=== PATIENT | male | born 1930 | race Caucasian/White ===

== ENCOUNTER 2016-09-12 14:56 | Inpatient (IN) | payer OTHER, BC ==
--- NOTE | 2016-09-12 15:45 | PDOC ---
History of Present Illness <Mack Reddy - Last Filed: 09/12/16 18:56> - General History Source: Patient Exam Limitations: No Limitations - History of Present Illness Initial Comments: 09/12/16 16:20 The patient is a 85 year old male with significant past medical history of bladder CA, hypertension, hyperlipidemia, diverticulosis who presents to the emergency department with a 3 day history of rectal bleeding. The patient states when he first noticed blood per rectum it was light in color and mixed with stool. In the later days of his stool the blood turned darker red and became coagulated. The patient is also complaining of some LLQ abdominal pain. His pain is worse with standing up and ambulation. His pain is better after a BM. His pain is a 5/10 in severity. He reports some associated weakness but denies any nausea, vomiting, or diarrhea. The patietn states his last colonoscopy was [address] Hill and he was told to come back for another in 5 years. The patient denies any recent abx use. He denies recent travels or sick contacts. The patient denies recent illness, fevers, or chills. <Chely Estrella - Last Filed: 09/12/16 23:03> - General Chief Complaint: Rectal Bleed Stated Complaint: RECTAL BLEEDING Time Seen by Provider: 09/12/16 15:44 Past History - Past Medical History Anemia: Yes (H/O BLOOD TRANSFUSIONS) Asthma: No Cancer: Yes (H/O BLADDER; PROSTATE: 2013) Cardiac Disorders: No CVA: No COPD: No CHF: No Dementia: No Diabetes: No GI Disorders: Yes (HEMORRHOIDS, diverticulosis, retal bleeding with blood transfusion) Disorders: Yes (BLADDER TUMOR) HTN: Yes Hypercholesterolemia: Yes Liver Disease: No Seizures: No Thyroid Disease: No - Surgical History Abdominal Surgery: Yes (BLADDER CA: 2011) Appendectomy: No Cardiac Surgery: No Cholecystectomy: No Lung Surgery: No Neurologic Surgery: No Orthopedic Surgery: Yes (R KNEE REPLACEMENT) - Immunization History Immunization Up to Date: Yes - Psycho/Social/Smoking Cessation Hx Anxiety: No Suicidal Ideation: No Smoking Status: No Smoking History: Never smoked Have you smoked in the past 12 months: No Number of Cigarettes Smoked Daily: 0 Information on smoking cessation initiated: No Hx Alcohol Use: Yes Drug/Substance Use Hx: No Substance Use Type: None Hx Substance Use Treatment: No <Mack Reddy - Last Filed: 09/12/16 18:56> <Chely Estrella - Last Filed: 09/12/16 23:03> - Past Medical History Allergies/Adverse Reactions: Allergies Allergy/AdvReac Type Severity Reaction Status Date / Time lorazepam [From Ativan] AdvReac Mild CONFUSION Verified 09/12/16 15:09 Home Medications: Ambulatory Orders Atorvastatin Calcium [Lipitor] 10 mg PO HS 09/12/16 Cholecalciferol (Vitamin D3) [Vitamin D3 -] 400 unit PO DAILY 09/12/16 Diltiazem HCl [Cartia Xt] 300 mg PO DAILY 09/12/16 Folic Acid/Multivit-Min/Lutein [Centrum Silver Chewable Tablet] 1 each PO DAILY 09/12/16 Gluc HCl/Csa/Collagen/Hyalur A [Glucosamine Chondroitin Cap] 1 each PO DAILY Olmesartan/Hydrochlorothiazide [Benicar Hct 40-12.5MG Tab] 1 tab PO DAILY Tamsulosin HCl [Flomax] 0.4 mg PO DAILY 09/12/16 Review of Systems - Review of Systems Able to Perform ROS?: Yes Comments:: 09/12/16 16:20 GENERAL/CONSTITUTIONAL: No fever or chills. No weakness. HEAD, EYES, EARS, NOSE AND THROAT: No change in vision. No ear pain or discharge. No sore throat. CARDIOVASCULAR: No chest pain or shortness of breath. RESPIRATORY: No cough, wheezing, or hemoptysis. GASTROINTESTINAL: +LLQ pain. +Blood per rectum. No nausea, vomiting, diarrhea or constipation. GENITOURINARY: No dysuria, frequency, or change in urination. MUSCULOSKELETAL: No joint or muscle swelling or pain. No neck or back pain. SKIN: No rash NEUROLOGIC: No headache, vertigo, loss of consciousness, or change in strength/ sensation. ENDOCRINE: No increased thirst. No abnormal weight change. HEMATOLOGIC/LYMPHATIC: No anemia, easy bleeding, or history of blood clots. ALLERGIC/IMMUNOLOGIC: No hives or skin allergy. <Chely Estrella - Last Filed: 09/12/16 23:03> *Physical Exam - Vital Signs Last Vital Signs Temp Pulse Resp BP Pulse Ox 97.7 F 104 H 20 103/53 97 09/12/16 15:09 09/12/16 15:09 09/12/16 15:09 09/12/16 15:09 09/12/16 15:09 <Mack Reddy - Last Filed: 09/12/16 18:56> - Vital Signs Last Vital Signs Temp Pulse Resp BP Pulse Ox 97.7 F 104 H 20 103/53 97 09/12/16 15:09 09/12/16 15:09 09/12/16 15:09 09/12/16 15:09 09/12/16 15:09 - Physical Exam Comments: 09/12/16 16:21 GENERAL: Awake, alert, and fully oriented, in no acute distress. +Pale appearing. HEAD: No signs of trauma EYES: PERRLA, EOMI, sclera anicteric, conjunctiva clear ENT: Auricles normal inspection, hearing grossly normal, nares patent, oropharynx clear without exudates. Moist mucosa NECK: Normal ROM, supple, no lymphadenopathy, JVD, or masses LUNGS: Breath sounds equal, clear to auscultation bilaterally. No wheezes, and no crackles HEART: Regular rate and rhythm, normal S1 and S2, no murmurs, rubs or gallops ABDOMEN: +LLQ tenderness to palpation, no guarding or rebound. Soft, normoactive bowel sounds. No masses EXTREMITIES: Normal range of motion, no edema. No clubbing or cyanosis. No cords, erythema, or tenderness NEUROLOGICAL: Cranial nerves II through XII grossly intact. Normal speech, normal gait SKIN: Warm, Dry, normal turgor, no rashes or lesions noted. <Chely Estrella - Last Filed: 09/12/16 23:03> ED Treatment Course - LABORATORY CBC & Chemistry Diagram: 09/12/16 16:02 09/12/16 16:02 <Mack Reddy - Last Filed: 09/12/16 18:56> - LABORATORY CBC & Chemistry Diagram: 09/12/16 16:02 09/12/16 16:02 <Chely Estrella - Last Filed: 09/12/16 23:03> Medical Decision Making - Medical Decision Making 09/12/16 18:50 85 yo M with history of diverticulosis presents to the ED with rectal bleeding for [address] scan shows acute diverticulitis. Will admit. 09/12/16 18:[address] Monteiro's office at . Spoke with call center -- when they checked to see who was information services tech for the group they said that the hospitalist would cover at [facility]. Microblog placed to hospitalist. <Chely Estrella - Last Filed: 09/12/16 23:03> *DC/Admit/Observation/Transfer - Discharge Dispostion Admit: Yes - Attestations Physician Attestion: 09/12/16 15:45 I, Dr. Mack Reddy, attest that this document has been prepared under my direction and personally reviewed by me in its entirety. I further attest, that it accurately reflects all work, treatment, procedures and medical decision -making performed by me. <Mack Reddy - Last Filed: 09/12/16 18:56> - Attestations Scribe Attestion: 09/12/16 16:21 Documentation prepared by Chely Estrella, acting as medical policy specialist for Mack Reddy DO. <Chely Estrella - Last Filed: 09/12/16 23:03> Diagnosis at time of Disposition: Acute diverticulitis, Diverticular hemorrhage - Discharge Dispostion Condition at time of disposition: Good - Referrals
[2016-09-12 16:44] LABS: BASOPHIL 0.4 % (0-2.0); EOSINOPHIL 0.3 % (0-4.5); MCH 29.5 pg (25.7-33.7); MEAN CELL VOLUME 86.8 fl (80-96); MEAN PLT VOLUME 8.1 fl (7.5-11.1); NEUTROPHILS 86.1 % (42.8-82.8); PLATELET COUNT 223 K/MM3 (134-434); RDW 13.6 % (11.9-15.9)
[2016-09-12 17:08] LABS: BILIRUBIN,TOTAL 0.4 mg/dL (0.2-1.0); CALCIUM 8.7 mg/dL (8.5-10.1); CREATININE 1.6 mg/dL (0.7-1.3); INR 1.07 (0.82-1.09); PROTHROMBIN TIME (PATIENT) 11.8 SEC (9.98-11.88); TOT PROT 5.9 g/dl (6.4-8.2)
--- NOTE | 2016-09-12 17:58 | PN ---
Progress Note (short form) - Note Progress Note: Consult dictated: 85 M with h/o GI bleed suspected to be diverticular in nature 2012 ( NSAID induced at the time) now with intermittent BRBPR friday --> Passage of clots / darker blood wed and passage of 1 Dark Red BM today mixed with stool. Last episode 2pm today. Has been on 2 aleve tablets per day for 1 month given hip pain and takes ASA 81mg once daily. Had 1 episode of LLQ pain that improved after a BM yesterday No current abdominal pain On exam: Anicteric Hrt RRR Lungs: CTA b/l Abd: Sft, NT/ND + BS Ext: no LE edema Hgb 11.8 BUN/Cr: 40/1.6 Imp: Rectal bleeding. By description of his bleeding, hemodynamic stability / relatively stable H/H over 3 days of bleeding, suspect LGIB/diverticular bleed precipitated by NSAID use Plan: NPO Monitor H/H Protonix 40mg once daily CT scan pending from ER Monitored setting for admission If devlopment of worsening bleeding / melena, EGD tomorrow
[2016-09-12] MEDS ORDERED: METRONIDAZOLE 500 MG PREMIXED 100 ML IVPB ONE ×2 (18:55→19:07)
[2016-09-12] MEDS ORDERED: LEVOFLOXACIN 750 MG IVPB 150 ML IVPB ONE (18:55)
[2016-09-12] MEDS ORDERED: morphine CARPU-JECT 2 MG/1 ML DISP.SYRIN IVPUSH PRN (20:27)
[2016-09-12] MEDS ORDERED: CEFTRIAXONE 1 GM in DEXTROSE 5%-WATER - 50 ML IVPB ONE (20:40)
[2016-09-12] MEDS ORDERED: PANTOPRAZOLE SODIUM 40 MG in SODIUM CHLORIDE 100 ML IVPB ONE (20:42)
--- NOTE | 2016-09-12 20:48 | HP ---
<Shannon Bui - Last Filed: 09/12/16 20:45> Problem List - Problem (1) Acute diverticulitis Code(s): K57.92 - DVTRCLI OF INTEST, PART UNSP, W/O PERF OR ABSCESS W/O BLEED (2) YASMANI (acute kidney injury) Code(s): N17.9 - ACUTE KIDNEY FAILURE, UNSPECIFIED (3) Hypertension Code(s): I10 - ESSENTIAL (PRIMARY) HYPERTENSION Visit type - Emergency Visit Emergency Visit: Yes Care time: The patient presented to the Emergency Department on the above date and was hospitalized for further evaluation of their emergent condition. - New Patient This patient is new to me today: Yes Date on this admission: 09/12/16 - Critical Care Critical Care patient: No <Myrna Kamara - Last Filed: 09/12/16 21:57> CHIEF COMPLAINT: GI Bleed PCP: Dr. Monteiro HISTORY OF PRESENT ILLNESS: The patient is a 85 yo M (UTD with flu vaccine and PNA vaccine), accompanied by daughter and son with a PMHx of diverticulosis who presents with 3 days of bloody stool. The patient first noticed light blood in his stool that progressively got darker in color. He states today his stool was much darker in color, bloodier and clotty. He reports minor LLQ abdominal pain (5/10 in severity) which prompted him to visit the ED. He denies nausea, vomiting, diarrhea, constipation, fever or chills. He denies chest pain, headache or dizziness. He denies dysuria, frequency, urgency or hematuria. As per son, the patient has been on a Aleve and cortizone shot regimen for hip pain control however has recently stopped due to his bowl complaints. The patient also stopped taking his baby aspirin. PMHx: Bladder CA, HTN, Hyperlipidemia Recent Travel: None PAST MEDICAL HISTORY: See above PAST SURGICAL HISTORY: Bilateral knee replacement Bladder Social History: Smoking: Denies Alcohol: 1 drink per night Drugs: Denies Family History: Noncontributory Allergies lorazepam [From Ativan] Adverse Reaction (Mild, Verified 09/12/16 15:09) CONFUSION HOME MEDICATIONS: Home Medications Medication Instructions Recorded Atorvastatin Calcium [Lipitor] 10 mg PO HS 09/12/16 Cholecalciferol (Vitamin D3) 400 unit PO DAILY 09/12/16 [Vitamin D3 -] Diltiazem HCl [Cartia Xt] 300 mg PO DAILY 09/12/16 Folic Acid/Multivit-Min/Lutein 1 each PO DAILY 09/12/16 [Centrum Silver Chewable Tablet] Gluc HCl/Csa/Collagen/Hyalur A 1 each PO DAILY 09/12/16 [Glucosamine Chondroitin Cap] Olmesartan/Hydrochlorothiazide 1 tab PO DAILY 09/12/16 [Benicar Hct 40-12.5MG Tab] Tamsulosin HCl [Flomax] 0.4 mg PO DAILY 09/12/16 REVIEW OF SYSTEMS CONSTITUTIONAL: Absent: fever, chills, diaphoresis, generalized weakness, malaise, loss of appetite, weight change HEENT: Absent: rhinorrhea, nasal congestion, throat pain, throat swelling, difficulty swallowing, mouth swelling, ear pain, eye pain, visual changes CARDIOVASCULAR: Absent: chest pain, syncope, palpitations, irregular heart rate, lightheadedness , peripheral edema RESPIRATORY: Absent: cough, shortness of breath, dyspnea with exertion, orthopnea, wheezing, stridor, hemoptysis GASTROINTESTINAL: melena, LLQ abdominal pain Absent: abdominal distension, nausea, vomiting, diarrhea, constipation, hematochezia GENITOURINARY: Absent: dysuria, frequency, urgency, hesitancy, hematuria, flank pain, genital pain MUSCULOSKELETAL: Absent: myalgia, arthralgia, joint swelling, back pain, neck pain SKIN: Absent: rash, itching, pallor HEMATOLOGIC/IMMUNOLOGIC: Absent: easy bleeding, easy bruising, lymphadenopathy, frequent infections ENDOCRINE: Absent: unexplained weight gain, unexplained weight loss, heat intolerance, cold intolerance NEUROLOGIC: Absent: headache, focal weakness or paresthesias, dizziness, unsteady gait, seizure, mental status changes, bladder or bowel incontinence PSYCHIATRIC: Absent: anxiety, depression, suicidal or homicidal ideation, hallucinations. PHYSICAL EXAMINATION Vital Signs - 24 hr 09/12/16 09/12/16 15:09 15:13 Temperature 97.7 F 98.6 F Pulse Rate 104 H Respiratory 20 Rate Blood Pressure 103/53 103/58 O2 Sat by Pulse 97 100 Oximetry (%) GENERAL: Awake, alert, and fully oriented, in no acute distress. HEAD: Normal with no signs of trauma. EYES: Pupils equal, round and reactive to light, extraocular movements intact, sclera anicteric, conjunctiva clear. No lid lag. EARS, NOSE, THROAT: Ears normal, nares patent, oropharynx clear without exudates. Moist mucous membranes. NECK: Normal range of motion, supple without lymphadenopathy, JVD, or masses. LUNGS: + Slight basal crackles. Breath sounds equal. No wheezes. No accessory muscle use. HEART: Regular rate and rhythm, normal S1 and S2 without murmur, rub or gallop. ABDOMEN: + Suprapubic ventral hernia. Soft, not distended, normoactive bowel sounds, no guarding, no rebound, No hepatomegaly or splenomegaly. MUSCULOSKELETAL: Normal range of motion at all joints. No bony deformities or tenderness. No CVA tenderness. UPPER EXTREMITIES: 2+ pulses, warm, well-perfused. No cyanosis. No clubbing. Cap refill <2 seconds. No peripheral edema. LOWER EXTREMITIES: 2+ pulses, warm, well-perfused. No calf tenderness. No peripheral edema. NEUROLOGICAL: Cranial nerves II-XII intact. Normal speech. PSYCHIATRIC: Cooperative. Good eye contact. Appropriate mood and affect. SKIN: Warm, dry, normal turgor, no rashes or lesions noted. Laboratory Results - last 24 hr 09/12/16 09/12/16 09/12/16 16:00 16:02 16:02 WBC 12.0 H RBC 4.00 Hgb 11.8 Hct 34.7 L MCV 86.8 MCHC 34.0 RDW 13.6 Plt Count 223 MPV 8.1 Neutrophils % 86.1 H Lymphocytes % 6.3 L D Monocytes % 6.9 Eosinophils % 0.3 D Basophils % 0.4 INR 1.07 Sodium Potassium Chloride Carbon Dioxide Anion Gap BUN Creatinine Creat Clearance w eGFR Random Glucose Calcium Total Bilirubin AST ALT Alkaline Phosphatase Total Protein Albumin Stool Occult Blood Negative Blood Type Antibody Screen 09/12/16 09/12/16 16:02 16:02 WBC RBC Hgb Hct MCV MCHC RDW Plt Count MPV Neutrophils % Lymphocytes % Monocytes % Eosinophils % Basophils % INR Sodium 139 Potassium 4.3 Chloride 102 Carbon Dioxide 27 Anion Gap 10 BUN 40 H D Creatinine 1.6 H D Creat Clearance w eGFR 41.49 Random Glucose 119 H Calcium 8.7 Total Bilirubin 0.4 AST 10 L D ALT 25 Alkaline Phosphatase 94 Total Protein 5.9 L Albumin 3.0 L D Stool Occult Blood Blood Type B POSITIVE Antibody Screen Negative ASSESSMENT/PLAN: The patient is a 85 yo M with a PMHx of diverticulosis who presents with bloody stool x3 days. The patient is being admitted for acute diverticulitis. 1.) GI Bleed - NPO - IVF - Metronidazole 500 mg Q6 - Protonix IV piggyback 40 mg daily - Repeat CBC in AM - GI consult - Plans discussed with pt and family 2.) ? - Ceftriaxone 1 g daily - Chest Xray 3.) HTN - Continue home meds 4.) YASMANI - Repeat CMP in the AM - Most likely secondary to dehydration
[2016-09-12] MEDS ORDERED: cefTRIAXone 1 GM/50 ML BAG (PRE-DOCKED) IVPB ONE (21:00)
[2016-09-12] MEDS: PANTOPRAZOLE SODIUM 40 MG/100 ML PRE-DOCKED IVPB SCH (21:20)
[2016-09-12] MEDS: HEPARIN NA (PORCINE) 5,000 UNITS/ML 1ML VIAL SQ SCH (22:23)
[2016-09-12 23:36] VITALS: BMI 30.2
[2016-09-13] MEDS: SODIUM CHLORIDE 1,000 ML IV SCH (00:11)
[2016-09-13] MEDS: METRONIDAZOLE 500 MG PREMIXED 100 ML IVPB SCH ×4 (01:07→22:35)
[2016-09-13] MEDS: HEPARIN NA (PORCINE) 5,000 UNITS/ML 1ML VIAL SQ SCH (06:24)
[2016-09-13 07:24] LABS: MCH 29.4 pg (25.7-33.7); MCHC 33.8 g/dl (32.0-35.9); MEAN PLT VOLUME 8.4 fl (7.5-11.1); PLATELET COUNT 224 K/MM3 (134-434); RDW 13.5 % (11.9-15.9); WHITE BLOOD COUNT 8.3 K/mm3 (4.0-10.0)
[2016-09-13 07:40] LABS: ALBUMIN 2.6 g/dl (3.4-5.0); CALCIUM 8.2 mg/dL (8.5-10.1); CREATININE 1.3 mg/dL (0.7-1.3)
[2016-09-13 07:42] LABS: BILIRUBIN,TOTAL 0.3 mg/dL (0.2-1.0); TOT PROT 5.3 g/dl (6.4-8.2)
[2016-09-13] MEDS: PANTOPRAZOLE SODIUM 40 MG/100 ML PRE-DOCKED IVPB SCH (09:48)
--- NOTE | 2016-09-13 09:58 | PN ---
Progress Note, Physician Chief Complaint: Had another wine colored bloody movement this AM . Not in pain. History of Present Illness: Patient with a previous history of GI Bleed thought to be due to Diverticulosis presents to ER yesterday with complaints of increasing amounts of bloody stool over 3-4 days. Stool was dark in the last few days + clots. He was advised to take Aleeve BID by Ortho who had given him a Steroid Right Hip Rx 3-4 weeks ago and has been on the NSAID since then. Some mild LLQ pain for a few days. No Chills or temp. PH of Hypertension,Bilateral Knee replacement, Partial Cystectomy for Bladder Ca, Hypertension and Hyperlipidemia. - Current Medication List Current Medications: Active Medications Heparin Sodium (Porcine) (Heparin -) 5,000 unit SQ TID [facility] Last Admin: 09/13/16 06:24 Dose: 5,000 unit Sodium Chloride (Normal Saline -) 1,000 mls @ 83 mls/hr IV ASDIR [facility] Last Admin: 09/13/16 00:11 Dose: 83 mls/hr Metronidazole (Flagyl 500mg Premixed Ivpb -) 100 mls @ 100 mls/hr IVPB Q6H-IV [facility] Last Admin: 09/13/16 09:48 Dose: 100 mls/hr Morphine Sulfate (Morphine Injection -) 2 mg IVPUSH Q6H PRN PRN Reason: PAIN LEVEL 6-10 Pantoprazole Sodium (Protonix 40mg Ivpb (Pre-Docked)) 40 mg IVPB DAILY [facility] Last Admin: 09/13/16 09:48 Dose: 40 mg - Objective Vital Signs: Vital Signs Temperature 98.1 F 09/13/16 08:00 Pulse Rate 110 H 09/13/16 08:00 Respiratory Rate 20 09/13/16 08:00 Blood Pressure 110/57 09/13/16 08:00 O2 Sat by Pulse Oximetry (%) 100 09/12/16 22:30 Constitutional: Yes: Calm, Pallor Cardiovascular: Yes: Regular Rate and Rhythm Respiratory: Yes: Regular. No: Rales, Wheezes Gastrointestinal: Yes: Soft, Distention, Hyperactive Bowel Sounds, Tenderness ( Slight LLQ) Genitourinary: No: [place] Present Edema: No Peripheral Pulses: Left Doralis Pedis: 2+, Right Dorsalis Pedis: 2+ Integumentary: No: Bruising Neurological: Yes: Alert, Oriented Labs: CBC, BMP 09/13/16 06:00 09/13/16 06:00 INR, PTT INR 1.07 (0.82-1.09) 09/12/16 16:02 - ....Imaging Chest X-ray: Report Reviewed Cat Scan: Report Reviewed Problem List - Problems (1) Diverticular hemorrhage Assessment/Plan: Hemoglobin Stable at 11GM. Type and Screen in Lab. Code(s): K57.31 - DVRTCLOS OF LG INT W/O PERFORATION OR ABSCESS W BLEEDING (2) Acute diverticulitis Assessment/Plan: On Antibiotics CAT Scan shows ? change in Transverse Colon and suggests Diverticulitis LLQ. Code(s): K57.92 - DVTRCLI OF INTEST, PART UNSP, W/O PERF OR ABSCESS W/O BLEED (3) YASMANI (acute kidney injury) Assessment/Plan: Improved in 24 hrs and exacerbated by NSAIDs Code(s): N17.9 - ACUTE KIDNEY FAILURE, UNSPECIFIED (4) Anemia Assessment/Plan: Hb stable at 11GM; to follow Code(s): D64.9 - ANEMIA, UNSPECIFIED (5) Hypertension Assessment/Plan: Stable Code(s): I10 - ESSENTIAL (PRIMARY) HYPERTENSION
--- NOTE | 2016-09-13 10:09 | CONS ---
DATE OF CONSULTATION: 09/12/2016 REQUESTING PHYSICIAN: Sarmad Monteiro MD HISTORY: The patient is an 85-year-old male admitted through [facility] Emergency Room for evaluation of rectal bleeding. He was last seen at [facility] in 2014 for rectal bleeding. At that time, he was taking multiple Aleve, and he was suspected to have recurrent diverticular bleeding. He was hemodynamically stable during that admission. Currently he describes his bleeding as follows: This past Friday he passed bright red blood from the rectum 2-3 times, Friday he passed dark, red blood, which he thought may have been clots twice, and then today he had a darker red bowel movement mixed with fecal matter 2 PM this afternoon. He has had no bleeding since. Triage admission vitals revealed a temperature 97.7 with pulse 104 and blood pressure 103/53. He also had an episode of bleeding in June 2013, which led to colonoscopy July 14, 2013 performed by my colleague, Dr. Hill revealing a 1.2-cm polyp in the descending colon and a 0.75-cm polyp in the proximal transverse colon. Polypectomies were performed. The patient then began experiencing further rectal bleeding after colonoscopy. He was taken the next day for both an upper endoscopy and a colonoscopy again performed by Dr. Hill. Upper endoscopy failed to reveal a source of GI bleeding, and on colonoscopy he noted a visible vessel in the descending colon at the site of his polypectomy site, and an Endoclip was placed. There was no further bleeding at that time. Prior to these episodes, he also had a colonoscopy with Dr. Murillo August 20, 2010 that revealed moderate pancolonic diverticulosis and internal hemorrhoids. Of note, he has been taking 2 Aleve pills daily for the past month for treatment of hip pain, and he also takes an aspirin 81 mg once daily. PAST MEDICAL HISTORY: Includes hypertension, arthritis, hyperlipidemia, bladder cancer for which he underwent a partial cystectomy December 2012, and diverticular bleed in July 2014 as well as June 2013. PAST SURGICAL HISTORY: Includes right total knee replacement in 2007, tonsillectomy, partial cystectomy with lymph node dissection. MEDICATIONS: Prior to admission include vitamin D3, Flomax, Lipitor, Benicar, glucosamine, Centrum Silver, Cardia, and aspirin 81 mg once daily. ALLERGIES: ATIVAN. SOCIAL HISTORY: He is . 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 No tobacco use. Drank alcohol socially. No history of intravenous drug abuse or illicit drugs. FAMILY HISTORY: Father from pneumonia. Mother of unclear causes. Brother with a history of colon cancer. Four healthy children. REVIEW OF SYSTEMS: Currently no chest pain, shortness of breath, fevers, chills, cough, sputum production, nausea, vomiting, abdominal pain. He denies any lower extremity swelling. He did have a left lower quadrant pain that improved after passage of stool and blood yesterday. PHYSICAL EXAMINATION: General: The patient is found lying comfortably in his emergency room bed. He appears to be in no apparent distress. Vital Signs: Afebrile with a pulse of 97, saturating at 96% on room air, blood pressure 113/86. HEENT: Sclerae anicteric. Neck: Supple. Heart: Reveals a regular rate and rhythm. No murmurs are appreciated. Lungs: Clear to auscultation bilaterally. Abdomen: Reveals a low pelvic surgical scar. Abdomen is, otherwise, nondistended. He has normoactive bowel sounds. No hepatosplenomegaly is appreciated. No masses are palpated. No hernia sac. No tenderness is elicited. Extremities: Reveals no lower extremity edema. Rectal: Digital rectal exam: He has a 2+ prostate. There are no external lesions and no masses palpated. There is no stool or blood in the rectal vault. LABORATORY EVALUATION: White blood count 12, hemoglobin 11.8, hematocrit 34.7, platelets 223, INR 1.07. Sodium 138, potassium 4.3, chloride 102, bicarbonate 27, BUN 40, creatinine 1.6, glucose 119, AST 10, ALT 25, alkaline phosphatase 94, total bilirubin 0.4, albumin 3. RADIOLOGY REPORTS: He has a CT scan of the abdomen and pelvis pending. IMPRESSION: An 85-year-old male with rectal bleeding. By description of his bleeding, hemodynamic stability, relatively stable hemoglobin and hematocrit over 3 days of bleeding. I suspect lower gastrointestinal bleed source such as diverticular bleeding participated by his ongoing nonsteroidal anti-inflammatory drug use. PLAN: N.p.o. Monitor hemoglobin and hematocrit. CT scan pending from the ER. Monitored setting for admission. If development of worsening bleeding or melena, EGD tomorrow. Otherwise, an elective colonoscopy on Friday would be considered. I did advise the patient to avoid NSAID analgesia from this point forward. Thank you for this consultative opportunity. BRUNA HOANG DO CD/[id number]
[2016-09-13] MEDS ORDERED: LEVOFLOXACIN 500 MG IVPB 100 ML IVPB ONE (13:31)
--- NOTE | 2016-09-13 13:38 | PN ---
GI Progress Note Subjective: GI NOte: Had some blood with defecation earlier today but none since. Earlier LLQ pain has resolved. CT Scan reveals a focus of sigmoid diverticulitis. This would account for his pain and the bleeding. His daughter is present and was involved in our discussion - Objective Vital Signs: Vital Signs Temperature 98.1 F 09/13/16 08:00 Pulse Rate 110 H 09/13/16 08:00 Respiratory Rate 20 09/13/16 08:00 Blood Pressure 110/57 09/13/16 08:00 O2 Sat by Pulse Oximetry (%) 98 09/13/16 09:00 CBC,CMP WBC 8.3 K/mm3 (4.0-10.0) D 09/13/16 06:00 RBC 3.75 M/mm3 (4.00-5.60) L 09/13/16 06:00 Hgb 11.0 GM/dL (11.7-16.9) L 09/13/16 06:00 Hct 32.6 % (35.4-49) L 09/13/16 06:00 MCV 87.0 fl (80-96) 09/13/16 06:00 MCHC 33.8 g/dl (32.0-35.9) 09/13/16 06:00 RDW 13.5 % (11.9-15.9) 09/13/16 06:00 Plt Count 224 K/MM3 (134-434) 09/13/16 06:00 MPV 8.4 fl (7.5-11.1) 09/13/16 06:00 Neutrophils % 86.1 % (42.8-82.8) H 09/12/16 16:02 Lymphocytes % 6.3 % (8-40) L D 09/12/16 16:02 Monocytes % 6.9 % (3.8-10.2) 09/12/16 16:02 Eosinophils % 0.3 % (0-4.5) D 09/12/16 16:02 Basophils % 0.4 % (0-2.0) 09/12/16 16:02 Sodium 142 mmol/L (136-145) 09/13/16 06:00 Potassium 4.8 mmol/L (3.5-5.1) 09/13/16 06:00 Chloride 107 mmol/L (98-107) 09/13/16 06:00 Carbon Dioxide 28 mmol/L (21-32) 09/13/16 06:00 Anion Gap 7 (8-16) L 09/13/16 06:00 BUN 29 mg/dL (7-18) H D 09/13/16 06:00 Creatinine 1.3 mg/dL (0.7-1.3) 09/13/16 06:00 Creat Clearance w eGFR 52.72 (>60) 09/13/16 06:00 Random Glucose 97 mg/dL (74-106) 09/13/16 06:00 Calcium 8.2 mg/dL (8.5-10.1) L 09/13/16 06:00 Total Bilirubin 0.3 mg/dL (0.2-1.0) D 09/13/16 06:00 AST 8 U/L (15-37) L 09/13/16 06:00 ALT 20 U/L (12-78) 09/13/16 06:00 Alkaline Phosphatase 90 U/L (45-117) 09/13/16 06:00 Total Protein 5.3 g/dl (6.4-8.2) L 09/13/16 06:00 Albumin 2.6 g/dl (3.4-5.0) L 09/13/16 06:00 Current Medications Generic Name Dose Route Start Last Admin Trade Name Freq PRN Reason Stop Dose Admin Heparin Sodium (Porcine) 5,000 unit 09/13/16 22:00 Heparin - SQ BID RICH[facility]ON Sodium Chloride 1,000 mls @ 83 mls/hr 09/12/16 20:30 09/13/16 00:11 Normal Saline - IV 83 mls/hr ASDIR R[facility]ARDSON Administration Metronidazole 100 mls @ 100 mls/hr 09/13/16 02:00 09/13/16 09:48 Flagyl 500mg Premixed Ivpb - IVPB 100 mls/hr Q6H-IV [facility] Administration Levofloxacin 100 mls @ 100 mls/hr 09/13/16 13:31 Levaquin 500 Mg Premixed Ivpb - IVPB 09/13/16 14:30 ONCE ONE Morphine Sulfate 2 mg 09/12/16 20:27 Morphine Injection - IVPUSH Q6H PRN PAIN LEVEL 6-10 Pantoprazole Sodium 40 mg 09/12/16 20:45 09/13/16 09:48 Protonix 40mg Ivpb (Pre-Docked) IVPB 40 mg DAILY R[facility] Administration Constitutional: No Distress Cardiovascular: Yes: Regular Rate and Rhythm Respiratory: Yes: CTA Bilaterally Gastrointestinal Inspection: Yes: Distention ...Auscultate: Yes: Normoactive Bowel Sounds ...Palpate: Yes: Soft, Other (mild LLQ tenderness) Labs: CBC, BMP 09/13/16 06:00 09/13/16 06:00 INR, PTT INR 1.07 (0.82-1.09) 09/12/16 16:02 Assessment/Plan Sigmoid diverticulitis with bleeding. Will obtain blood cultures and add Levaquin to the Flagyl course. Will advance diet as tolerated. Will give Miralax to soften stool.
[2016-09-13 20:43] LABS: BASOPHIL 0.5 % (0-2.0); EOSINOPHIL 1.1 % (0-4.5); MCHC 33.3 g/dl (32.0-35.9); MEAN PLT VOLUME 7.7 fl (7.5-11.1); NEUTROPHILS 73.8 % (42.8-82.8); PLATELET COUNT 210 K/MM3 (134-434); RDW 13.4 % (11.9-15.9); WHITE BLOOD COUNT 6.6 K/mm3 (4.0-10.0)
[2016-09-13] MEDS ORDERED: HEPARIN NA (PORCINE) 5,000 UNITS/ML 1ML VIAL SQ SCH (22:00)
[2016-09-13] MEDS: POLYETHYLENE GLYCOL 3350 119 GM BTL PO SCH (22:35)
[2016-09-14] MEDS: METRONIDAZOLE 500 MG PREMIXED 100 ML IVPB SCH ×4 (03:26→21:28)
[2016-09-14] MEDS: SODIUM CHLORIDE 1,000 ML IV SCH ×3 (03:26→20:33)
[2016-09-14 07:55] LABS: MCH 29.1 pg (25.7-33.7); MCHC 33.3 g/dl (32.0-35.9); MEAN CELL VOLUME 87.5 fl (80-96); MEAN PLT VOLUME 7.9 fl (7.5-11.1); PLATELET COUNT 190 K/MM3 (134-434); RDW 13.6 % (11.9-15.9); WHITE BLOOD COUNT 5.6 K/mm3 (4.0-10.0)
[2016-09-14 08:30] LABS: CALCIUM 7.8 mg/dL (8.5-10.1)
[2016-09-14 08:33] LABS: CREATININE 1.1 mg/dL (0.7-1.3); FERRITIN 307.61 ng/ml (16.4-293.9)
[2016-09-14] MEDS: LEVOFLOXACIN 500 MG IVPB 100 ML IVPB SCH (08:56)
--- NOTE | 2016-09-14 09:52 | PN ---
Progress Note (short form) - Note Progress Note: Patient seen and examined. Chart reviewed. Currently supine in bed, awake, responsive and appropriate. Several episodes of blood per rectum described as a dark red color. One brief episode of feeling lightheaded upon getting up OOB to BR, now will only get OOB with assistance. Denies new chest discomfort palpitations or EGAN. LLQ discomfort persists No rigors. Selected Entries 02/17/15 02/18/15 09/14/16 21:00 06:00 09:06 Temperature 99.0 F 98.4 F Pulse Rate 86 104 H Respiratory 20 18 Rate Blood Pressure 127/73 128/64 O2 Sat by Pulse 97 Oximetry (%) Oxygen Delivery Room Air Method Laboratory Tests 02/17/15 02/17/15 02/18/15 06:50 06:50 07:00 WBC 6.9 Hgb 11.2 L Hct 33.6 L Plt Count 209 Sodium Potassium Chloride Carbon Dioxide BUN Creatinine Random Glucose Calcium Ferritin Carcinoembryonic Ag 2.5 Prostate Specific Ag 0.70 D 02/18/15 09/14/16 09/14/16 07:00 06:40 06:40 WBC 5.6 Hgb 9.7 L Hct 29.2 L Plt Count 190 Sodium 146 H 144 Potassium 4.5 4.2 Chloride 111 H 110 H Carbon Dioxide 30 24 BUN 14 20 H D Creatinine 1.1 1.1 Random Glucose 89 90 Calcium 8.7 7.8 L Ferritin 307.610 H Carcinoembryonic Ag Prostate Specific Ag Chest Clear Cor RRR Abd Soft Mild tenderness in LLQ w/o guarding or rebound BS positive No mass appreciated Ext No edema or phlebitis Neuro No deficit Assessment and Plan Lower GI Bleed Likely recurrence of diverticular bleed Persistence of bleeding may prompt need for repeat colonoscopy given past h/o bleeding vessel post polypectomy Remains on sq heparin Will discontinued Diverticulitis On antibiotics Partial cystectomy and LN dissection for bladder cancer Stable Renal insufficiency Improved HTN stable HPL stable Anemia Monitor 9.7/29.2 OA B/L TKRs H/O right hip discomfort H/O colonic polypectomy 07/14/13 colonoscopy Continue current Rx Further GI input anticipated and appreciated ?need for surgical assessment? Recheck labs
[2016-09-14] MEDS: PANTOPRAZOLE SODIUM 40 MG/100 ML PRE-DOCKED IVPB SCH (10:00)
[2016-09-14] MEDS: POLYETHYLENE GLYCOL 3350 119 GM BTL PO SCH ×2 (10:00→21:28)
--- NOTE | 2016-09-14 13:30 | EKG ---
Test Reason : Blood Pressure : / mmHG Vent. Rate : 111 BPM Atrial Rate : 111 BPM P-R Int : 184 ms QRS Dur : 072 ms QT Int : 322 ms P-R-T Axes : 050 010 042 degrees QTc Int : 437 ms SINUS TACHYCARDIA POSSIBLE INFERIOR INFARCT , AGE UNDETERMINED ABNORMAL ECG WHEN COMPARED WITH ECG OF 28-MAR-2015 09:41, NO SIGNIFICANT CHANGE WAS FOUND Confirmed by MILLIE ROGERS MD ([id number]) on 09/14/2016 1:29:51 PM Referred By: JAYMIE Confirmed By:MILLIE ROGERS MD
[2016-09-15] MEDS: METRONIDAZOLE 500 MG PREMIXED 100 ML IVPB SCH ×4 (03:00→21:44)
[2016-09-15 07:29] LABS: BASOPHIL 0.6 % (0-2.0); EOSINOPHIL 1.6 % (0-4.5); MCHC 32.9 g/dl (32.0-35.9); MEAN CELL VOLUME 88.2 fl (80-96); MEAN PLT VOLUME 7.9 fl (7.5-11.1); NEUTROPHILS 71.6 % (42.8-82.8); PLATELET COUNT 189 K/MM3 (134-434); RDW 13.5 % (11.9-15.9); WHITE BLOOD COUNT 5.7 K/mm3 (4.0-10.0)
[2016-09-15 08:22] LABS: ALBUMIN 2.3 g/dl (3.4-5.0); ALK PHOS 71 U/L (45-117); ANION GAP 10 (8-16); BILIRUBIN,TOTAL 0.2 mg/dL (0.2-1.0); CALCIUM 7.8 mg/dL (8.5-10.1); CO2 23 mmol/L (21-32); CREATININE 1.1 mg/dL (0.7-1.3); GLUCOSE,RANDOM 72 mg/dL (74-106); SGOT/AST 13 U/L (15-37); SGPT/ALT 18 U/L (12-78); TOT PROT 4.5 g/dl (6.4-8.2)
--- NOTE | 2016-09-15 09:33 | PN ---
Progress Note (short form) - Note Progress Note: Patient seen and examined. Chart reviewed. Currently supine in bed, awake, responsive and appropriate. The patient had described several episodes of blood per rectum described as a dark red color from two nights ago, but had no similar episodes last PM. He did pass a few very small (matchhead size) dark clots last PM. Subcutaneous Heparin discontinued by me yesterday AM No new sensation of lightheadedness upon getting up OOB to BR. Denies new chest discomfort palpitations or EAGN. LLQ discomfort improved. No rigors. Selected Entries 09/14/16 09/15/16 21:00 05:29 Temperature 98.2 F Pulse Rate 95 H Respiratory 18 Rate Blood Pressure 117/60 O2 Sat by Pulse 98 Oximetry (%) Oxygen Delivery Room Air Method Laboratory Tests 09/14/16 09/15/16 09/15/16 06:40 06:00 06:00 WBC 5.7 Hgb 9.2 L Hct 27.9 L Plt Count 189 Sodium 145 Potassium 4.2 Chloride 112 H Carbon Dioxide 23 BUN 18 Creatinine 1.1 Random Glucose 72 L Calcium 7.8 L Total Bilirubin 0.2 D AST 13 L D ALT 18 Alkaline Phosphatase 71 D C-Reactive Protein 4.9 H Total Protein 4.5 L Albumin 2.3 L Chest Clear Cor RRR Abd No tenderness in LLQ No guarding or rebound BS positive No mass appreciated Ext No edema or phlebitis Neuro No deficit Assessment and Plan Lower GI Bleed Likely recurrence of diverticular bleed, possibly enhanced by sq heparin Persistence of bleeding may prompt need for repeat colonoscopy given past h/o bleeding vessel post polypectomy Diverticulitis On antibiotics CT report notes possible small extraluminal air pocket w/o abscess formation at distal descending colon/sigmoid colon area in LLQ where patient's pain was localized yesterday. 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 Recheck labs ?Recheck CT?
[2016-09-15] MEDS: LEVOFLOXACIN 500 MG IVPB 100 ML IVPB SCH (10:38)
[2016-09-15] MEDS: PANTOPRAZOLE SODIUM 40 MG/100 ML PRE-DOCKED IVPB SCH (10:39)
[2016-09-15] MEDS: POLYETHYLENE GLYCOL 3350 119 GM BTL PO SCH ×2 (10:39→21:50)
--- NOTE | 2016-09-15 10:47 | PN ---
GI Progress Note Subjective: No acute events describes small "match head sized dark blood" per rectum today. Heparin was discontinued No abdominal pain - Objective Vital Signs: Vital Signs Temperature 98.2 F 09/15/16 05:29 Pulse Rate 95 H 09/15/16 05:29 Respiratory Rate 18 09/15/16 05:29 Blood Pressure 117/60 09/15/16 05:29 O2 Sat by Pulse Oximetry (%) 98 09/14/16 21:00 Constitutional: Calm Eyes: No: Sclera Icterus Cardiovascular: Yes: Regular Rate and Rhythm Respiratory: Yes: CTA Bilaterally Gastrointestinal Inspection: No: Distention ...Auscultate: Yes: Normoactive Bowel Sounds ...Palpate: No: Tenderness Neurological: Yes: Alert, Oriented Labs: CBC, BMP 09/15/16 06:00 09/15/16 06:00 INR, PTT INR 1.07 (0.82-1.09) 09/12/16 16:02 Problem List - Problems (1) Diverticular hemorrhage Assessment/Plan: Given CT scan findings,? diverticulitis with microperforation Monitoring H/H IV Abx Full liquids in AM Surgical evaluation Code(s): K57.31 - DVRTCLOS OF LG INT W/O PERFORATION OR ABSCESS W BLEEDING
[2016-09-16] MEDS: SODIUM CHLORIDE 1,000 ML IV SCH (01:44)
[2016-09-16] MEDS: METRONIDAZOLE 500 MG PREMIXED 100 ML IVPB SCH ×4 (02:41→20:26)
[2016-09-16 08:19] LABS: BASOPHIL 0.6 % (0-2.0); EOSINOPHIL 2.7 % (0-4.5); MCH 29.4 pg (25.7-33.7); MCHC 33.9 g/dl (32.0-35.9); MEAN CELL VOLUME 86.6 fl (80-96); MEAN PLT VOLUME 7.8 fl (7.5-11.1); PLATELET COUNT 185 K/MM3 (134-434); RDW 13.3 % (11.9-15.9); WHITE BLOOD COUNT 5.4 K/mm3 (4.0-10.0)
[2016-09-16] MEDS ORDERED: PT OWN MED DRAWER 7, Y5N ONE (09:21)
[2016-09-16] MEDS: LEVOFLOXACIN 500 MG IVPB 100 ML IVPB SCH (09:30)
--- NOTE | 2016-09-16 09:37 | CONSULT ---
Consult Consult Specialty:: General Surgery Referred by:: GI Reason for Consultation:: GI Bleed - History of Present Illness Chief Complaint: GI Bleed History of Present Illness: This is an 86 year-old male who was admitted through the emergency department on 09/12/16 with a 3-day history of rectal bleeding. The patient was admitted to the hospital but had continued bleeding. He was on subcutaneous heparin and this was discontinued yesterday by medicine. He reports melenotic stool this AM and then one episode of bloody stool this morning. He denies any lightheadedness. He is hemodynamicaly stable. His hemoglobin was 11.4 on admission and is 9.[address] scan of the abdomen and pelvis revealed acute sigmoid diverticulitis with a small amount of extraluminal air. He currently denies abdominal pain and is tolerating a clear liquid diet. - History Source History Provided By: Patient, Medical Record Limitations to Obtaining History: No Limitations - Past Medical History Cardio/Vascular: Yes: HTN Gastrointestinal: Yes: Diverticulitis, Diverticulosis, Other (colon polyps) Renal/: Yes: BPH, Cancer (Hx Bladder CA; 1/ Bladder removed via surgery: [facility] Had Prostate BX + in [place] but watchful waiting by [facility] MD) - Past Surgical History Past Surgical History: Yes: Joint Replacement (Right knee; also Partial Cystectomy bladder for CA) - Alcohol/Substance Use Hx Alcohol Use: Yes History of Substance Use: reports: None - Smoking History Smoking history: Never smoked Have you smoked in the past 12 months: No Aproximately how many cigarettes per day: 0 - Social History ADL: Independent 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 History of Recent Travel: No Home Medications - Allergies Allergies/Adverse Reactions: Allergies Allergy/AdvReac Type Severity Reaction Status Date / Time lorazepam [From Ativan] AdvReac Mild CONFUSION Verified 09/12/16 15:09 - Home Medications Home Medications: Ambulatory Orders Atorvastatin Calcium [Lipitor] 10 mg PO HS 09/12/16 Cholecalciferol (Vitamin D3) [Vitamin D3 -] 400 unit PO DAILY 09/12/16 Diltiazem HCl [Cartia Xt] 300 mg PO DAILY 09/12/16 Folic Acid/Multivit-Min/Lutein [Centrum Silver Chewable Tablet] 1 each PO DAILY 09/12/16 Gluc HCl/Csa/Collagen/Hyalur A [Glucosamine Chondroitin Cap] 1 each PO DAILY Olmesartan/Hydrochlorothiazide [Benicar Hct 40-12.5MG Tab] 1 tab PO DAILY Tamsulosin HCl [Flomax] 0.4 mg PO DAILY 09/12/16 Family Disease History - Family Disease History Family Disease History: Other: Father (68 ? cause), Mother (68 ? cause) Review of Systems - Review of Systems Constitutional: denies: Chills, Fever Eyes: denies: Blurred Vision, Double Vision HENT: denies: Difficult Swallowing, Hearing Loss Neck: denies: Lumps, Pain on Movement Cardiovascular: denies: Chest Pain, Edema Respiratory: denies: Cough, Exercise Intolerance Gastrointestinal: reports: Melena, Rectal Bleeding. denies: Abdominal Pain, Diarrhea Genitourinary: reports: Frequency. denies: Hematuria Musculoskeletal: denies: Back Pain, Decreased ROM Integumentary: denies: Blister, Bruising Neurological: denies: Change in Speech, Confusion Endocrine: denies: Excessive Sweating, Increased Hunger Hematology/Lymphatic: denies: Easily Bruised, Excessive Bleeding Psychiatric: denies: Anxiety, Depression Physical Exam Vital Signs: Vital Signs Temperature 98.9 F 09/16/16 06:00 Pulse Rate 99 H 09/16/16 06:00 Respiratory Rate 16 09/16/16 06:00 Blood Pressure 124/71 09/16/16 06:00 O2 Sat by Pulse Oximetry (%) 98 09/14/16 21:00 Constitutional: Yes: No Distress, Calm Eyes: Yes: Conjunctiva Clear, EOM Intact HENT: Yes: Atraumatic, Normocephalic Neck: Yes: Supple, Trachea Midline Respiratory: Yes: Regular, CTA Bilaterally Gastrointestinal: Yes: Normal Bowel Sounds, Soft, Abdomen, Obese. No: Tenderness ...Rectal Exam: Yes: Hemorrhoids/External, Hemorrhoids/Internal, Sphincter Tone Normal, Other (No active bleeding) Musculoskeletal: No: Joint Stiffness Extremities: No: Calf Tenderness, Delayed Capillary Refill Neurological: Yes: Alert, Oriented Psychiatric: Yes: Alert, Oriented Labs: CBC, BMP 09/16/16 06:35 09/15/16 06:00 Imaging - Results Cat Scan: Report Reviewed, Image Reviewed Problem List - Problems (1) Acute diverticulitis Code(s): K57.92 - DVTRCLI OF INTEST, PART UNSP, W/O PERF OR ABSCESS W/O BLEED (2) Diverticular hemorrhage Code(s): K57.31 - DVRTCLOS OF LG INT W/O PERFORATION OR ABSCESS W BLEEDING Assessment/Plan ASSESSMENT: Acute diverticulitis with possible microperforation Acute GI bleeding Given the history of melena and bright red blood, there could be a combination of upper GI/hemorrhoidal and possibly diverticular bleeding Acute blood loss anemia PLAN: GI follow up Consider upper endoscopy if melena persists Given CT finding of sigmoid microperforation, would hold off on any lower scoping for now Transfuse if necessary If bleeding persists, consider bleeding scan to locate source Agree with holding heparin Will follow with you
[2016-09-16] MEDS: PANTOPRAZOLE SODIUM 40 MG/100 ML PRE-DOCKED IVPB SCH (11:15)
--- NOTE | 2016-09-16 11:19 | PN ---
Progress Note, Physician Chief Complaint: Patient says he had 2 bloody movements this am seen by nurse. History of Present Illness: Patient with history of Diverticulosis admitted with Rectal Bleeding. ER CAT scan showed Diverticulitis and and possible extraluminal air pockets but no abcess. Also area of question in the transverse colon. Patient is off BP Rx and BP 124/71. This AM at 6 and 8AM he had a BM with BRB seen by nurse. Some mild LLQ discomfort but no pain. On clear liquid diet. Hb 9GM. Notes from Surgeon and GI MD noted. - Current Medication List Current Medications: Active Medications Sodium Chloride (Normal Saline -) 1,000 mls @ 83 mls/hr IV ASDIR [facility] Last Admin: 09/16/16 01:44 Dose: 83 mls/hr Metronidazole (Flagyl 500mg Premixed Ivpb -) 100 mls @ 100 mls/hr IVPB Q6H-IV [facility] Last Admin: 09/16/16 02:41 Dose: 100 mls/hr Levofloxacin (Levaquin 500 Mg Premixed Ivpb -) 100 mls @ 100 mls/hr IVPB DAILY@ 0800 [facility] Last Admin: 09/15/16 10:38 Dose: 100 mls/hr Morphine Sulfate (Morphine Injection -) 2 mg IVPUSH Q6H PRN PRN Reason: PAIN LEVEL 6-10 Pantoprazole Sodium (Protonix 40mg Ivpb (Pre-Docked)) 40 mg IVPB DAILY [facility] Last Admin: 09/15/16 10:39 Dose: 40 mg Polyethylene Glycol (Miralax (For Daily Use) -) 17 gm PO BID [facility] Last Admin: 09/15/16 21:50 Dose: Not Given - Objective Vital Signs: Vital Signs Temperature 98.9 F 09/16/16 06:00 Pulse Rate 99 H 09/16/16 06:00 Respiratory Rate 16 09/16/16 06:00 Blood Pressure 124/71 09/16/16 06:00 O2 Sat by Pulse Oximetry (%) 98 09/14/16 21:00 Constitutional: Yes: Calm, Pallor Cardiovascular: Yes: Regular Rate and Rhythm Respiratory: Yes: Regular Gastrointestinal: Yes: Soft, Distention, Hyperactive Bowel Sounds, Tenderness ( Mild discomfort LLQ.). No: Tenderness, Epigastrium Edema: No Neurological: Yes: Alert Labs: CBC, BMP 09/16/16 06:35 09/15/16 06:00 INR, PTT INR 1.07 (0.82-1.09) 09/12/16 16:02 Problem List - Problems (1) Diverticular hemorrhage Assessment/Plan: Hemoglobin 9GM; will follow. Diverticulitis noted on CAT scan with ? extraluminal air bubbles. ?? Repeat. Code(s): K57.31 - DVRTCLOS OF LG INT W/O PERFORATION OR ABSCESS W BLEEDING (2) Acute diverticulitis Assessment/Plan: On Antibiotics. Code(s): K57.92 - DVTRCLI OF INTEST, PART UNSP, W/O PERF OR ABSCESS W/O BLEED (3) YASMANI (acute kidney injury) Assessment/Plan: Renal Lab has returned to normal. Code(s): N17.9 - ACUTE KIDNEY FAILURE, UNSPECIFIED (4) Anemia Assessment/Plan: Admission 11.8 GM; now 9 GM. Type and screen in lab. F/U lab AM. Code(s): D64.9 - ANEMIA, UNSPECIFIED (5) Hypertension Assessment/Plan: BP 124/71 off BP RX. Code(s): I10 - ESSENTIAL (PRIMARY) HYPERTENSION
[2016-09-16] MEDS: POLYETHYLENE GLYCOL 3350 119 GM BTL PO SCH ×2 (11:58→22:25)
--- NOTE | 2016-09-16 16:45 | PN ---
GI Progress Note Subjective: Some bright red blood per rectum today followed by saurabh BM in afternoon No abdominal pain - Objective Vital Signs: Vital Signs Temperature 98.2 F 09/16/16 14:08 Pulse Rate 98 H 09/16/16 14:08 Respiratory Rate 20 09/16/16 14:08 Blood Pressure 128/69 09/16/16 14:08 O2 Sat by Pulse Oximetry (%) 98 09/16/16 09:00 Constitutional: Calm Eyes: No: Sclera Icterus Cardiovascular: Yes: Regular Rate and Rhythm Gastrointestinal Inspection: No: Distention ...Auscultate: Yes: Normoactive Bowel Sounds ...Palpate: No: Tenderness Neurological: Yes: Alert, Oriented Labs: CBC, BMP 09/16/16 06:35 09/15/16 06:00 INR, PTT INR 1.07 (0.82-1.09) 09/12/16 16:02 Problem List - Problems (1) Diverticular hemorrhage Assessment/Plan: With ? punctate intraluminal air at sigmoid level No abdominal pain: repeat CT scan tomorrow to reassess ? punctate extraluminal air Advance diet to fuill liquids Code(s): K57.31 - DVRTCLOS OF LG INT W/O PERFORATION OR ABSCESS W BLEEDING
[2016-09-17] MEDS: METRONIDAZOLE 500 MG PREMIXED 100 ML IVPB SCH ×4 (02:04→21:43)
[2016-09-17 07:18] LABS: BASOPHIL 0.7 % (0-2.0); EOSINOPHIL 1.8 % (0-4.5); MCH 29.2 pg (25.7-33.7); MCHC 33.8 g/dl (32.0-35.9); MEAN CELL VOLUME 86.5 fl (80-96); MEAN PLT VOLUME 8.1 fl (7.5-11.1); NEUTROPHILS 73.8 % (42.8-82.8); PLATELET COUNT 207 K/MM3 (134-434); RDW 13.4 % (11.9-15.9); WHITE BLOOD COUNT 6.5 K/mm3 (4.0-10.0)
[2016-09-17 07:47] LABS: CALCIUM 7.8 mg/dL (8.5-10.1); CREATININE 1.1 mg/dL (0.7-1.3)
--- NOTE | 2016-09-17 08:24 | PN ---
Progress Note, Physician History of Present Illness: Patient seen and examined. Awake, alert, no acute distress. Tolerating full liquid diet. No further bleeding but states he's having more frequent bowel movements. H & H stable. For repeat CT today. - Current Medication List Current Medications: Active Medications Metronidazole (Flagyl 500mg Premixed Ivpb -) 100 mls @ 100 mls/hr IVPB Q6H-IV [facility] Last Admin: 09/17/16 02:04 Dose: 100 mls/hr Levofloxacin (Levaquin 500 Mg Premixed Ivpb -) 100 mls @ 100 mls/hr IVPB DAILY@ 0800 [facility] Last Admin: 09/16/16 09:30 Dose: 100 mls/hr Morphine Sulfate (Morphine Injection -) 2 mg IVPUSH Q6H PRN PRN Reason: PAIN LEVEL 6-10 Pantoprazole Sodium (Protonix 40mg Ivpb (Pre-Docked)) 40 mg IVPB DAILY [facility] Last Admin: 09/16/16 11:15 Dose: 40 mg Polyethylene Glycol (Miralax (For Daily Use) -) 17 gm PO BID [facility] Last Admin: 09/16/16 22:25 Dose: Not Given - Objective Vital Signs: Vital Signs Temperature 98.1 F 09/17/16 06:05 Pulse Rate 92 H 09/17/16 06:05 Respiratory Rate 20 09/17/16 06:05 Blood Pressure 135/69 09/17/16 06:05 O2 Sat by Pulse Oximetry (%) 96 09/16/16 22:20 Constitutional: Yes: No Distress, Calm Eyes: Yes: Conjunctiva Clear, EOM Intact HENT: Yes: Atraumatic, Normocephalic Neck: Yes: Supple, Trachea Midline Respiratory: Yes: Regular. No: Accessory Muscle Use Gastrointestinal: Yes: Normal Bowel Sounds, Soft. No: Tenderness Neurological: Yes: Alert, Oriented Psychiatric: Yes: Alert, Oriented Labs: CBC, BMP 09/17/16 06:00 09/17/16 06:00 INR, PTT INR 1.07 (0.82-1.09) 09/12/16 16:02 Problem List - Problems (1) Acute diverticulitis Code(s): K57.92 - DVTRCLI OF INTEST, PART UNSP, W/O PERF OR ABSCESS W/O BLEED (2) Diverticular hemorrhage Code(s): K57.31 - DVRTCLOS OF LG INT W/O PERFORATION OR ABSCESS W BLEEDING Assessment/Plan ASSESSMENT: Acute diverticulitis with possible microperforation Acute GI bleeding Acute blood loss anemia-stable PLAN: Follow up CT Out of bed and ambulating Diet as per GI Follow H & H
[2016-09-17] MEDS: LEVOFLOXACIN 500 MG IVPB 100 ML IVPB SCH (09:11)
[2016-09-17] MEDS: POLYETHYLENE GLYCOL 3350 119 GM BTL PO SCH ×2 (10:08→21:43)
[2016-09-17] MEDS: PANTOPRAZOLE SODIUM 40 MG/100 ML PRE-DOCKED IVPB SCH (11:02)
--- NOTE | 2016-09-17 12:21 | PN ---
Progress Note, Physician Chief Complaint: Patient says he feels better and had no obvious blood in BM last nite. History of Present Illness: Patient came to hospital for abdominal pain and rectal bleeding for several days. CAT Scan of Abdomen revealed Acute Diverticulitis with possible extraluminal air bubbles. He was put on IV antibiotics and repeat CAT Scan of Abdomen and Pelvis from this AM show improvement of Diverticulitis overall. He had 2 BM's overnite and said there was no obvious bleeding in bowl or on toilet tissue. He tolerated full liquid diet today. Hb 9 to 8.9Gm. - Current Medication List Current Medications: Active Medications Diltiazem HCl (Cardizem Cd -) 240 mg PO DAILY [facility] Last Admin: 09/17/16 11:02 Dose: 240 mg Metronidazole (Flagyl 500mg Premixed Ivpb -) 100 mls @ 100 mls/hr IVPB Q6H-IV [facility] Last Admin: 09/17/16 10:07 Dose: 100 mls/hr Levofloxacin (Levaquin 500 Mg Premixed Ivpb -) 100 mls @ 100 mls/hr IVPB DAILY@ 0800 [facility] Last Admin: 09/17/16 09:11 Dose: 100 mls/hr Morphine Sulfate (Morphine Injection -) 2 mg IVPUSH Q6H PRN PRN Reason: PAIN LEVEL 6-10 Pantoprazole Sodium (Protonix 40mg Ivpb (Pre-Docked)) 40 mg IVPB DAILY [facility] Last Admin: 09/17/16 11:02 Dose: 40 mg Polyethylene Glycol (Miralax (For Daily Use) -) 17 gm PO BID [facility] Last Admin: 09/17/16 10:08 Dose: Not Given - Objective Vital Signs: Vital Signs Temperature 98 F 09/17/16 09:00 Pulse Rate 98 H 09/17/16 09:00 Respiratory Rate 20 09/17/16 09:00 Blood Pressure 150/87 09/17/16 09:00 O2 Sat by Pulse Oximetry (%) 96 09/17/16 09:00 Constitutional: Yes: Calm, Pallor Eyes: Yes: Conjunctiva Clear Cardiovascular: Yes: Regular Rate and Rhythm Respiratory: Yes: Regular. No: Rales, Wheezes Gastrointestinal: Yes: Soft, Distention. No: Tenderness Genitourinary: No: [place] Present Edema: No Neurological: Yes: Alert, Oriented Labs: CBC, BMP 09/17/16 06:00 09/17/16 06:00 INR, PTT INR 1.07 (0.82-1.09) 09/12/16 16:02 - ....Imaging Cat Scan: Report Reviewed Problem List - Problems (1) Diverticular hemorrhage Assessment/Plan: No bleeding for 24 hrs; on full liquid diet. Code(s): K57.31 - DVRTCLOS OF LG INT W/O PERFORATION OR ABSCESS W BLEEDING (2) Acute diverticulitis Assessment/Plan: On IV antibiotics Code(s): K57.92 - DVTRCLI OF INTEST, PART UNSP, W/O PERF OR ABSCESS W/O BLEED (3) YASMANI (acute kidney injury) Assessment/Plan: Stable renal lab Code(s): N17.9 - ACUTE KIDNEY FAILURE, UNSPECIFIED (4) Anemia Assessment/Plan: Hb stable 9 to 8.9GM To follow again in AM. Code(s): D64.9 - ANEMIA, UNSPECIFIED Qualifiers: Iron deficiency anemia type: chronic blood loss (5) Hypertension Assessment/Plan: BP elevated today. Will restart 1 of 2 home BP Rx's but will start with Cardizem CD 240 instead of 300 mg. Code(s): I10 - ESSENTIAL (PRIMARY) HYPERTENSION
--- NOTE | 2016-09-17 18:37 | PN ---
GI Progress Note Subjective: No acute events Tolerated PO tonight No rectal bleeding Repeat CT scan revealed improved appearance of sigmoid diverticultis / extraluminal air - Objective Vital Signs: Vital Signs Temperature 98.2 F 09/17/16 14:29 Pulse Rate 103 H 09/17/16 14:29 Respiratory Rate 20 09/17/16 09:00 Blood Pressure 133/66 09/17/16 14:29 O2 Sat by Pulse Oximetry (%) 96 09/17/16 09:00 Constitutional: Calm Eyes: No: Sclera Icterus Cardiovascular: Yes: Regular Rate and Rhythm Respiratory: Yes: CTA Bilaterally Gastrointestinal Inspection: No: Distention ...Auscultate: Yes: Normoactive Bowel Sounds ...Palpate: No: Tenderness Edema: No Neurological: Yes: Alert, Oriented Labs: CBC, BMP 09/17/16 06:00 09/17/16 06:00 INR, PTT INR 1.07 (0.82-1.09) 09/12/16 16:02 Problem List - Problems (1) Diverticular hemorrhage Assessment/Plan: With suspected acute diverticulitis No abdominal pain If no further bleeding / abdominal pain no GI objection to d/c home tomorrow. F/ U in office in 2-3 weeks Can change to PO antibiotics and continue for 5 more days Code(s): K57.31 - DVRTCLOS OF LG INT W/O PERFORATION OR ABSCESS W BLEEDING
[2016-09-18] MEDS: METRONIDAZOLE 500 MG PREMIXED 100 ML IVPB SCH (02:37)
[2016-09-18 05:46] VITALS: BP 124/67; PULSE 93; TEMP 98.4
[2016-09-18 07:52] LABS: BASOPHIL 0.5 % (0-2.0); EOSINOPHIL 0.3 % (0-4.5); MCH 28.9 pg (25.7-33.7); MCHC 33.3 g/dl (32.0-35.9); MEAN CELL VOLUME 86.8 fl (80-96); MEAN PLT VOLUME 7.9 fl (7.5-11.1); NEUTROPHILS 79.9 % (42.8-82.8); PLATELET COUNT 223 K/MM3 (134-434); RDW 13.9 % (11.9-15.9); WHITE BLOOD COUNT 6.7 K/mm3 (4.0-10.0)
[2016-09-18] MEDS: LEVOFLOXACIN 500 MG IVPB 100 ML IVPB SCH (07:58)
--- NOTE | 2016-09-18 08:32 | DS ---
Physical Examination Vital Signs: Vital Signs Temperature 98.4 F 09/18/16 05:44 Pulse Rate 93 H 09/18/16 05:44 Respiratory Rate 18 09/18/16 05:44 Blood Pressure 124/67 09/18/16 05:44 O2 Sat by Pulse Oximetry (%) 96 09/17/16 21:00 Constitutional: Yes: Calm Cardiovascular: Yes: Regular Rate and Rhythm Respiratory: Yes: Regular Gastrointestinal: Yes: Hyperactive Bowel Sounds. No: Tenderness Edema: No Neurological: Yes: Alert, Oriented Labs: CBC, BMP 09/18/16 06:00 09/17/16 06:00 Discharge Summary Reason For Visit: DIVERTICULITIS Current Active Problems YASMANI (acute kidney injury) (Acute) Acute diverticulitis (Acute) Diverticular hemorrhage (Acute) Hypertension on Rx Procedures: Principal: IV antibiotics and Rx; CAT Scans of Abdomen Other Procedures: Daily Lab; medical consults from GI Hospital Course: Slowly improved. Condition: Good - Instructions Diet, Activity, Other Instructions: Soft regular Diet; no added salt. Avoid high fiber foods until you are improved. See Dr. Monteiro or Dr. Hill within 2 weeks for followup and followup lab. Referrals: Sarmad Monteiro MD [Primary Care Provider] - George Hill MD [Staff Physician] - Disposition: HOME - Home Medications Comprehensive Discharge Medication List: Ambulatory Orders Atorvastatin Calcium [Lipitor] 10 mg PO HS 09/12/16 Cholecalciferol (Vitamin D3) [Vitamin D -] 400 unit PO DAILY 09/12/16 Diltiazem HCl [Cartia Xt] 300 mg PO DAILY 09/12/16 Folic Acid/Multivit-Min/Lutein [Centrum Silver Chewable Tablet] 1 each PO DAILY 09/12/16 Gluc HCl/Csa/Collagen/Hyalur A [Glucosamine Chondroitin Cap] 1 each PO DAILY Tamsulosin HCl [Flomax] 0.4 mg PO DAILY 09/12/16 Levofloxacin [Levaquin -] 500 mg PO DAILY #5 tablet 09/18/16 Metronidazole [Flagyl -] 500 mg PO TID #15 tablet 09/18/16
[2016-09-18] MEDS ORDERED: LEVOFLOXACIN 500 MG TABLET (FP) PO SCH (09:00)
[2016-09-18] MEDS: POLYETHYLENE GLYCOL 3350 119 GM BTL PO SCH (09:33)
[2016-09-18] MEDS ORDERED: metroNIDAZOLE 250 MG TABLET PO SCH (14:00)
== END 2016-09-18 09:44 | disposition home or self-care (01) | DRG 378 ==
LOC: JER 14:56 → J7W 21:51 → J6S 09-17 09:01
PROVIDERS: ADMIT Internal Medicine; ATTEND Internal Medicine
DX: K57.31 Diverticulosis of large intestine without perforation or abscess with bleeding (principal); N17.9 Acute kidney failure, unspecified; D50.0 Iron deficiency anemia secondary to blood loss (chronic); I10 Essential (primary) hypertension; E78.5 Hyperlipidemia, unspecified; Z85.46 Personal history of malignant neoplasm of prostate; Z85.51 Personal history of malignant neoplasm of bladder; Z96.653 Presence of artificial knee joint, bilateral
CPT/HCPCS: 36415; 71010-TC; 74176-TC; 80048; 80053; 82272; 82607; 82728; 82746; 83540; 85025; 85027; 85610; 86140; 86850; 86900; 86901; 87040; 93005; 93010; 97116-GP; 97161-GP; 99283-25; J1644; Q9967